=== PATIENT | female | born 2000 | race Caucasian/White ===

== ENCOUNTER 2022-09-17 04:16 | Inpatient (IN) | payer BC ==
[~2022-09-17] VITALS: Ht 168 cm; Wt 93.6 kg
[2022-09-17] VITALS (42 sets, daily range): BP systolic 120–180; BP diastolic 56–98
[2022-09-17] MEDS ORDERED: MINERAL OIL 30 ML UDC TOP PRN (05:00)
[2022-09-17] MEDS ORDERED: D5 LR IV SOLUTION 1,000 ML IV SCH (05:00)
[2022-09-17] MEDS ORDERED: PREN1TAB19 PO (05:05)
--- NOTE | 2022-09-17 05:06 | History & Physical-OB ---
OB - Chief Complaint & HPI Date/Time Date of Admission: Date of Admission: 09/17/2022 Date seen by a Provider: Sep 17, 2022 Time Seen by a Provider: 04:50 Chief Complaint/History OB-Reason for Admission/Chief: Rupture of Membranes Hx : 1 Hx Para: 0 Expected Date of Delivery: Sep 20, 2022 Gestational Age in Weeks: 39 Gestational Age in Days: 4 History of Labs A+, antibody neg, RNI. HIV/hepB/RPR NR. GC/chlamydia neg. 1 hour glucola neg. GBS neg. Other G1 at 39w4d presents to labor and delivery after going to the bathroom at 3:30 am, she had a gush of fluid after finishing urinating, then another gush of fluid when she was walking back to bed, and another on arrival to the hospital. She denies bleeding or decreased movement. She thinks she is starting to have some contractions now. Allergies and Home Medications Allergies Coded Allergies: No Known Drug Allergies (Unverified , 09/17/22) Patient Home Medication List Home Medication List Reviewed: Yes Vit/Iron Fumarate/FA ( Vitamins Tablet) 28 Mg Iron-800 Mcg Tablet, 1 EACH PO DAILY, (Reported) Entered as Reported by: NEAL JARAMILLO on 09/17/22 4994 Last Action: New Order OB - History Hx of Present Care: Yes Ultrasounds: Normal mid trimester US Obstetrical Complications: None Medical Complications: None Information Induced Hypertension: No Maternal Gestational Diabetes: No Hemorrhage: No Obstetrical History Hx : 1 Hx Para: 0 Hx # Term Pregnancies: 0 Hx # Pregnancies: 0 Number of Living Children: 0 Hx Multiple Gestation: No Hx Ectopic : No Hx Stillbirth: No Hx Complication: No Hx Induced Hypertens: No Hx Maternal Gestational Diabet: No Hx Hemorrhage: No Patient Past Medical History PMHx: Denies SurgHx: wisdom teeth extraction, arm fracture repair Social History/Family History Alcohol Use: Denies Use Recreational Drug Use: No Smoking Cessation: Never smoker Immunizations Influenza Vaccine Up-to-Date: No; Not Current Tetanus Booster (TDap): Unknown Rubella: not immune RPR/VDRL: Negative GBS Status: Negative HBsAG: Negative OB - Admission Exam Physical Exam HEENT: NCAT Cervical Dilatation: 3cm Effacement: 0% Station: -3 Membranes: Ruptured Amniotic Fluid: Clear Accelerations: Accelerations Present Fitting Room Inspector Variability: Average (6-25) Contractions on Admission: None OB - Assessment/Plan/Diagnosis Assessment Assessment: rupture of membranes Admission Dx Term intrauterine at 39w4d Spontaneous rupture of membranes GBS negative Rubella non-immune Admission Status: Inpatient Order (span 2 midnights) Reason for Inpatient Admission: Labor, delivery and course Plan Plan: Expectant Management Problems: (1) Spontaneous rupture of membranes Assessment & Plan: Discussed immediate augmentation vs a period of expectant management, she would prefer expectant management for a brief period. tachycardia noted on admit but with good variability and accels, no maternal fever and rupture of membranes less than 2 hours ago, will give IVF bolus and monitor closely (2) Rubella non-immune status, antepartum Assessment & Plan: MMR NEAL JARAMILLO MD Sep 17, 2022 05:06
[2022-09-17 05:52] LABS: BASOPHILS % (AUTO) 0 % (0-10); EOSINOPHILS % (AUTO) 0 % (0-10); HEMATOCRIT 35 % (35-52); HEMOGLOBIN 11.3 g/dL (11.5-16.0); LYMPHOCYTES # (AUTO) 2.6 10^3/uL (1.0-4.0); LYMPHOCYTES % (AUTO) 20 % (12-44); MEAN CORPUSCULAR HEMOGLOBIN 30 pg (25-34); MEAN CORPUSCULAR HGB CONC 33 g/dL (32-36); MEAN CORPUSCULAR VOLUME 92 fL (80-99); MEAN PLATELET VOLUME 9.9 fL (9.0-12.2); MONOCYTES # (AUTO) 0.8 10^3/uL (0.0-1.0); MONOCYTES % (AUTO) 7 % (0-12); NEUTROPHILS # (AUTO) 9.3 10^3/uL (1.8-7.8); NEUTROPHILS % (AUTO) 73 % (42-75); PLATELET COUNT 356 10^3/uL (130-400); WHITE BLOOD COUNT 12.8 10^3/uL (4.3-11.0)
[2022-09-17] MEDS ORDERED: CATHETER FLUSH 10 ML SYR IV SCH ×2 (06:00→22:00)
[2022-09-17] MEDS ORDERED: OXYTOCIN PRE-MIX DRIP 500 ML IV SCH ×2 (08:30→15:45)
[2022-09-17] MEDS ORDERED: fentaNYL 2 mcg/ml BUPIVA 0.125 100 ML ONE (10:14)
[2022-09-17] MEDS ORDERED: BUPIVACAINE 0.25% 10 ML (SENSORCAINE) VIAL ONE (10:32)
[2022-09-17] MEDS ORDERED: fentaNYL INJ 100 MCG/2 ML AMP ONE (10:32)
[2022-09-17] MEDS ORDERED: LACTATED RINGERS 1,000 ML IV ONE (11:15)
[2022-09-17] MEDS ORDERED: fentaNYL 2 mcg/ml BUPIVA 0.125 100 ML IV SCH (11:15)
[2022-09-17] MEDS ORDERED: CATHETER FLUSH 10 ML SYR IV PRN (11:15)
[2022-09-17] MEDS ORDERED: NALOXONE 0.4 MG/ML 1 ML (NARCAN) VIAL IV PRN (11:15)
[2022-09-17] MEDS ORDERED: LIDOCAINE 1% INJ 10 ML VIAL ONE (15:11)
[2022-09-17] MEDS ORDERED: TETANUS,DIPTH,PERTUSS P/F (BOOSTRIX) 0.5 ML VIAL IM ONE (15:45)
[2022-09-17] MEDS ORDERED: MEASLES,MUMPS,RUBELLA 1 EA INJ SQ ONE (15:45)
[2022-09-17] MEDS ORDERED: BENZOCAINE/MENTHOL (DERMOPLAST) 56 ML CAN TP PRN (15:45)
[2022-09-17] MEDS ORDERED: WITCH HAZEL(TUCKS) 40 EA JAR TOP PRN (15:45)
--- NOTE | 2022-09-17 15:45 | OB Labor & Delivery Record ---
Vag Delivery Note Vag Delivery Note Date of Delivery: 09/17/22 Preoperative Diagnosis: Mary Ann Murphy is a (22 /Para 1 / 0, Gestational Age (wks)39with 4 days Postoperative Diagnosis: Same Surgeon: NEAL JARAMILLO Commercial Diver: Janis Melo, OMS4 Anesthesia: Epidural Delivery Type: Findings: Viable female , apgars 9/9, weight 7#3 Lacerations: second degree perineal Intact placenta with 3 vessel cord. No nuchal cord, body cord or shoulder dystocia Estimated Blood Loss: 200 ml Complications: None Condition: Stable Description of Procedure: The patient is a 22 year old female who presented with rupture of membranes. She was admitted and informed consent was obtained. Her labor course was remarkable for augmentation with pitocin. She progressed to complete dilatation and began to push. She was then set up for delivery. The infant's head was delivered atraumatically in the ДМИТРИЙ position. The shoulders and remainder of the infant's body were then delivered without difficulty. Upon delivery, the infant was vigorous and placed on maternal chest and the mouth and nares were bulb suctioned. After a delay cord was doubly clamped and cut and the remained on maternal chest. An intact placenta with 3-vessel cord delivered via Christ and there was found to be minimal bleeding.~ Vigorous fundal massage was performed and the fundus was found to be firm. IV oxytocin was given. Examination of the vagina and perineum revealed a second degree perineal laceration repaired in the usual fashion with 3-0 vicryl rapide suture. Following the repair, sponge, instrument and needle counts were correct. Mom and baby were both in stable condition in the labor suite. Vitals - Labs Vital Signs - I&O Vital Signs Date Time Temp Pulse Resp B/P (MAP) Pulse Ox O2 Delivery O2 Flow Rate FiO2 09/17/22 11:39 92 129/63 (85) 99 Room Air 09/17/22 11:33 88 122/68 (86) Room Air 09/17/22 11:28 86 131/63 (85) 99 Room Air 09/17/22 11:21 86 132/64 (86) 99 Room Air 09/17/22 11:18 95 130/59 (82) 98 Room Air 09/17/22 11:15 127/59 (81) Room Air 09/17/22 11:12 94 18 132/58 (82) 98 Room Air 09/17/22 11:09 93 18 129/59 (82) 99 Room Air 09/17/22 11:06 95 18 129/59 (82) Room Air 09/17/22 11:03 96 18 134/70 (91) Room Air 09/17/22 11:00 93 18 134/76 (95) Room Air 09/17/22 10:57 90 18 120/67 (84) 98 Room Air 09/17/22 10:44 96 18 137/79 (98) 98 Room Air 09/17/22 10:25 80 18 130/86 (101) Room Air 09/17/22 10:10 75 18 136/95 (109) Room Air 09/17/22 09:55 88 18 135/83 (100) Room Air 09/17/22 09:40 85 18 144/70 (94) Room Air 09/17/22 09:25 86 18 128/75 (92) Room Air 09/17/22 08:55 86 18 128/73 (91) Room Air 09/17/22 08:10 82 18 138/71 (93) Room Air 09/17/22 07:54 36.7 95 18 139/78 (98) 96 Room Air 09/17/22 05:00 36.7 93 18 96 Room Air Labs Laboratory Tests 09/17/22 05:21: White Blood Count 12.8H, Red Blood Count 3.75L, Hemoglobin 11.3L, Hematocrit 35, Mean Corpuscular Volume 92, Mean Corpuscular Hemoglobin 30, Mean Corpuscular Hemoglobin Concent 33, Red Cell Distribution Width 13.4, Platelet Count 356, Mean Platelet Volume 9.9, Immature Granulocyte % (Auto) 0, Neutrophils (%) (Auto ) 73, Lymphocytes (%) (Auto) 20, Monocytes (%) (Auto) 7, Eosinophils (%) (Auto) 0, Basophils (%) (Auto) 0, Neutrophils # (Auto) 9.3H, Lymphocytes # (Auto) 2.6, Monocytes # (Auto) 0.8, Eosinophils # (Auto) 0.0, Basophils # (Auto) 0.0, I mmature Granulocyte # (Auto) 0.1 NEAL JARAMILLO MD Sep 17, 2022 15:45
[2022-09-17] MEDS: IBUPROFEN 600 MG (MOTRIN) TAB PO SCH (18:08)
[2022-09-17] MEDS: DOCUSATE SODIUM 100 MG (COLACE) CAP PO SCH (21:32)
[2022-09-18 00:19] VITALS: BP 127/60
[2022-09-18] MEDS: IBUPROFEN 600 MG (MOTRIN) TAB PO SCH ×4 (00:21→18:08)
[2022-09-18 04:47] VITALS: BP 115/56
[2022-09-18 05:56] LABS: BASOPHILS # (AUTO) 0.1 10^3/uL (0.0-0.1); BASOPHILS % (AUTO) 0 % (0-10); EOSINOPHILS % (AUTO) 0 % (0-10); HEMATOCRIT 31 % (35-52); HEMOGLOBIN 10.1 g/dL (11.5-16.0); LYMPHOCYTES # (AUTO) 3.6 10^3/uL (1.0-4.0); LYMPHOCYTES % (AUTO) 20 % (12-44); MEAN CORPUSCULAR HEMOGLOBIN 30 pg (25-34); MEAN CORPUSCULAR HGB CONC 33 g/dL (32-36); MEAN CORPUSCULAR VOLUME 93 fL (80-99); MONOCYTES # (AUTO) 1.2 10^3/uL (0.0-1.0); MONOCYTES % (AUTO) 7 % (0-12); NEUTROPHILS # (AUTO) 13.2 10^3/uL (1.8-7.8); NEUTROPHILS % (AUTO) 72 % (42-75); PLATELET COUNT 315 10^3/uL (130-400); WHITE BLOOD COUNT 18.2 10^3/uL (4.3-11.0)
[2022-09-18] MEDS: FERROUS SULF 325 MG (IRON) TAB PO SCH (08:35)
[2022-09-18] MEDS: DOCUSATE SODIUM 100 MG (COLACE) CAP PO SCH ×2 (08:35→20:14)
[2022-09-18 08:53] VITALS: BP 128/55
--- NOTE | 2022-09-18 09:51 | Anesthesia-Regional Post-Op ---
Regional Patient Condition Mental Status: Alert, Oriented x3 Circulation: Same as Pre-Op Headache: Absent Sensation: Full Recovery Motor Block: Absent Post Op Complications Complications None Follow Up Care/Instructions Patient Instructions None needed. Anesthesia/Patient Condition Patient is doing well, no complaints, stable vital signs, no apparent adverse anesthesia problems. No complications reported per nursing. ANCELMO LONGO CRNA Sep 18, 2022 09:51
[2022-09-18 12:30] VITALS: BP 121/67
[2022-09-18] MEDS ORDERED: IBUP-844 PO (14:02)
[2022-09-18] MEDS ORDERED: DOCU100C37 PO (14:02)
[2022-09-18] MEDS ORDERED: FERR325T24 PO (14:02)
--- NOTE | 2022-09-18 16:23 | OB Triage Report ---
ALLISON CANDELARIA 09/18/22 1623: Standard Progress Note Progress Notes/Assess & Plan Date Seen by a Provider: Sep 18, 2022 Time Seen by a Provider: 10:30 Expected Date of Delivery: Sep 20, 2022 Gestational Age in Weeks: 39 Gestational Age in Days: 4 Progress/Assessment & Plan Mary Ann Murphy is a 22 y/o G1 now P1001 who delivered a viable female via on 09/17 at 39.4 wga. Patient reports she is feeling well this morning. She is and states there has been a little difficulty latching and with baby gagging. [employer] financial[employer] consultant has seen the patient and provided assistance. The patient's Hgb this AM is 10.1. Fe supplementation has been added. The patient reports normal lochia that is decreasing in amount. Patient denies SOA, chest pain, or feeling light-headed. Fundus is firm and appropriately tender. Pain is well-controlled with PO pain medications. Patient is RNI, plan to administer MMR. Plan for discharge tomorrow if patient continues to do well. Diagnosis/Problems Diagnosis/Problems (1) Rubella non-immune status, antepartum Status: Acute Assessment & Plan: RNI, administer MMR (2) 39 weeks gestation of Status: Acute Assessment & Plan: Mary Ann Murphy is a 22 y/o G1 now P1001 who delivered a viable female via on 09/17 at 39.4 wga. -Routine care -Fe supplementation -Encourage , senior treasury consultant as needed -Ibuprofen and Tylenol PO for pain management -Monitor for vaginal bleeding, fever, or change in vital signs -Plan for discharge on 09/19 if patient continues to do well SONALI ZAMORA MD 09/18/22 1706: Standard Progress Note Progress Notes/Assess & Plan Time Seen by a Provider: 11:00 Expected Date of Delivery: Sep 20, 2022 Gestational Age in Weeks: 39 Gestational Age in Days: 4 LMP/VAISHNAVI Comment: Delivered Supervisory-Addendum Brief Supervisory Addendum Verification and Attestation of Medical Student E/M Service I personally saw and examined patient and repeated the history and exam which confirmed that documented by the medical student. I reviewed and verified all information documented by the medical student and made modifications to such information, when appropriate. I personally performed the physical exam and medical decision making. Sonali Zamora, Sep 18, 2022,17:06 ALLISON CANDELARIA Sep 18, 2022 16:23 SONALI ZAMORA MD Sep 18, 2022 17:06
[2022-09-18 16:46] VITALS: BP 121/67
[2022-09-19 00:05] VITALS: BP 112/54
[2022-09-19] MEDS: IBUPROFEN 600 MG (MOTRIN) TAB PO SCH ×3 (00:05→11:49)
[2022-09-19 06:08] VITALS: BP 123/75
[2022-09-19] MEDS ORDERED: MEASLES,MUMPS,RUBELLA 1 EA INJ ONE (09:10)
[2022-09-19] MEDS ORDERED: TETANUS,DIPTH,PERTUSS P/F (BOOSTRIX) 0.5 ML VIAL IM ONE (09:11)
[2022-09-19 09:17] VITALS: BP 146/60
[2022-09-19] MEDS: DOCUSATE SODIUM 100 MG (COLACE) CAP PO SCH (09:22)
[2022-09-19] MEDS: FERROUS SULF 325 MG (IRON) TAB PO SCH (09:22)
--- NOTE | 2022-09-19 09:34 | Discharge Summary ---
Discharge Summary Hospital Course Problems/Diagnosis: (1) Rubella non-immune status, antepartum Status: Resolved Resolution Date/Time: 09/18/22 @ 09:29 Assessment & Plan: MMR given (2) anemia Status: Acute Assessment & Plan: Started on ferrous sulfate daily, asymptomatic. (3) Need for Tdap vaccination Status: Resolved Resolution Date/Time: 09/18/22 @ 09:31 Assessment & Plan: Received (4) Spontaneous vaginal delivery Status: Resolved Resolution Date/Time: 09/17/22 @ 09:31 Assessment & Plan: Uncomplicated after SROM at home at 39 weeks, required augmentation with pitocin, then had aguilar and uncomplicated labor. Second degree perineal laceration repaired after delivery. course uncomplicated. Hospital Course Date of Admission: Sep 17, 2022 at 04:57 Admission Diagnosis : Spontaneous rupture of membranes prior to labor onset 39 weeks gestation Family Physician/Provider: Neal Zamora MD Date of Discharge: 09/19/22 Discharge Diagnosis: See problem list Hospital Course: See problem list Labs and Pending Lab Test: Home Meds Active Docusate Sodium 100 Mg Capsule 100 Mg PO BID Ibu (Ibuprofen) 600 Mg Tablet 600 Mg PO Q6HR PRN Ferosul (Ferrous Sulfate) 325 Mg (65 Mg Iron) Tablet 325 Mg PO DAILY@0700 Reported Vitamins Tablet ( Vit/Iron Fumarate/FA) 28 Mg Iron-800 Mcg Tablet 1 Each PO DAILY Patient Discharge Instructions Follow up with Dr. Zamora on 10/23 at 11 am for visit. Activity: Activity as Tolerated (avoid strenuous activity x 6 weeks) Nothing Inside Vagina: No Douching, No Loving, No Tampons Discharge Diet: No Restrictions Symptoms to Report to : Swelling Increased, Fever Over 101 Degrees F, Pain/Pressure in Chest, Vaginal Bleeding Increase, Vaginal Discharge Foul, Shortness of Breath For Any Problems or Questions: Contact Your Physician Discharge Physical Examination Allergies: Coded Allergies: No Known Drug Allergies (Unverified , 09/17/22) Vitals & I&Os Vital Signs Date Time Temp Pulse Resp B/P (MAP) Pulse Ox O2 Delivery O2 Flow Rate FiO2 09/19/22 09:17 36.6 77 18 146/60 (88) 97 09/19/22 00:05 Room Air General Appearance: No Apparent Distress Respiratory: Lungs Clear Cardiovascular: Regular Rate, Rhythm Skin: Normal Color Neurologic/Psychiatric: Alert, Normal Mood/Affect Discharge Summary Date of Admission Sep 17, 2022 at 04:57 Date of Discharge Discharge Date: Sep 19, 2022 Discharge Time: 1600 Discharge Diagnosis (1) Rubella non-immune status, antepartum Status: Resolved Assessment & Plan: RNI, administer MMR (2) 39 weeks gestation of Status: Acute Assessment & Plan: Mary Ann Murphy is a 22 y/o G1 now P1001 who delivered a viable female via on 09/17 at 39.4 wga. -Routine care -Fe supplementation -Encourage , organizational development consultant as needed -Ibuprofen and Tylenol PO for pain management -Monitor for vaginal bleeding, fever, or change in vital signs -Plan for discharge on 09/19 if patient continues to do well Supervisory-Addendum Brief Verification & Attestation Participated in pt care: other (this is an attending note) Personally performed: other (this is an attending note) Care discussed with: other (this is an attending note) Procedures: n/a This is an attending note, I wrote the entirety of this note. NEAL ZAMORA MD Sep 19, 2022 09:34
[2022-09-19 15:58] VITALS: BP 127/86
[2022-09-19 16:20] VITALS: BP 127/86
== END 2022-09-19 16:20 | disposition home or self-care (01) | DRG 807 ==
LOC: WSo 04:16 → LDRP 04:18 → WSo 04:56 → LDRP 04:57
PROVIDERS: ADMIT Family Medicine; ATTEND Family Medicine
PROC: 10E0XZZ Delivery of Products of Conception, External Approach (ICD-10-PCS; principal; 2022-09-17)
PROC: 0KQM0ZZ Repair Perineum Muscle, Open Approach (ICD-10-PCS; 2022-09-17)
DX: O70.1 Second degree perineal laceration during delivery (principal); Z37.0 Single live birth; Z3A.39 39 weeks gestation of pregnancy; Z23 Encounter for immunization; O90.81 Anemia of the puerperium; Z28.310 Unvaccinated for COVID-19
CPT/HCPCS: 36415; 85025; 86780; 86850; 86900; 86901; 90707; 90715; 99212